=== PATIENT | female | born 1985 | race Caucasian/White ===

== ENCOUNTER 2024-11-22 08:09 | Outpatient (CLI) | payer OTHER | END 2024-11-22 08:10 | disposition home or self-care (01) | LOC: ULT 08:09 | PROVIDERS: ATTEND Physician Assistant | DX: R76.8 Other specified abnormal immunological findings in serum (principal); E06.9 Thyroiditis, unspecified; R93.89 Abnormal findings on diagnostic imaging of other specified body structures | CPT/HCPCS: 76536 ==